=== PATIENT | female | born 2000 | race Asian ===

== ENCOUNTER → 2023-07-15 13:44 | Outpatient (BNVA) | payer OTHER, SELFPAY | PROVIDERS: PCP Family Medicine; Visit Provider Family Medicine | DX: I10 Essential (primary) hypertension (principal); Z13.6 Encounter for screening for cardiovascular disorders; E11.9 Type 2 diabetes mellitus without complications; G47.10 Hypersomnia, unspecified; E66.01 Morbid (severe) obesity due to excess calories; E28.2 Polycystic ovarian syndrome | CPT/HCPCS: 85025 ==

== ENCOUNTER → 2023-07-21 10:43 | Outpatient (BNVA) | payer OTHER, SELFPAY | PROVIDERS: PCP Family Medicine; Visit Provider Family Medicine | DX: E11.9 Type 2 diabetes mellitus without complications (principal); I10 Essential (primary) hypertension; E28.2 Polycystic ovarian syndrome; Z13.6 Encounter for screening for cardiovascular disorders; G47.10 Hypersomnia, unspecified; E66.01 Morbid (severe) obesity due to excess calories | CPT/HCPCS: 80053; 80061; 82043; 82670; 83001; 83036; 84144; 84146; 84403; 84443; 84702 ==

== ENCOUNTER 2023-08-29 08:07 | Emergency (ER) | payer OTHER, SELFPAY ==
[2023-08-29 08:38] VITALS: BP 121/67; PULSE 78; RESP 18; TEMP 37.6; O2SAT 98; BMI 55.5
[2023-08-29] MEDS: ondansetron 2 mg/ML SDV 2 mL 4 MG IVP (08:44)
[2023-08-29] MEDS: sodium chloride 0.9% 1,000 ML 999 ML IV ×2 (08:44→10:43)
[2023-08-29 08:46] LABS: Basophils % 0.5 %; Eosinophils # 0.1 10^3/uL (0.0-0.8); Eosinophils % 1.5 %; Hematocrit 40.5 % (36-47); Lymphocytes # 1.4 10^3/uL (0.8-4.8); Lymphocytes % 20.8 %; Mean Corpuscular HGB Conc 31.6 g/dL (30-55); Mean Corpuscular Hemoglobin 26.3 pg (27-33); Mean Corpuscular Volume 83.3 fl (85-98); Monocytes # 0.6 10^3/uL (0.2-0.9); Neutrophils # 4.46 10^3/uL (1.8-7.7); Nucleated Red Blood Cells % 0 %; Platelet Count 300 10^3/cmm (157-399); Red Blood Count 4.86 10^6/uL (3.85-5.65); White Blood Count 6.55 10^3/uL (3.29-11.43)
--- NOTE | 2023-08-29 09:03 | ED_ITS ---
HPI - Abdominal Pain 2 General: Chief Complaint: Abdominal Pain Stated Complaint: abd pain, N Time Seen by Provider: 08/29/23 08:12 Source: patient Mode of arrival: ambulatory History of Present Illness: 23-year-old obese female presents to the emergency room with complaints of abdominal pain with nausea x 10 days worsening last 2 days. No dysuria urgency or frequency no hematochezia melena hematemesis or coffee-ground emesis. Patient states it is worse with movement. Denies diarrhea or vomiting. She states there is no potential for her to be . MD elicited complaint: abdominal pain Onset (ago): week(s) (2) Pain Consistency: intermittent Location: Periumbilical Quality: cramping Radiation: none Exacerbating factors: nothing Relieving factors: nothing Associated Symptoms: Reports GI cramping; Denies anorexia, belching, bloating, change in bowel habits, change in stool character, chills, coffee ground emesis, constipation, diarrhea, dyspepsia, dysuria, excessive flatus, fever(s), heartburn, hematochezia, hematuria, hematemesis, fecal incontinence, loose stools, melena, nausea, poor appetite, syncope and vomiting Review of Systems 2 Const: Denies: fever(s) or chills Card: Denies: chest pain, palpitations or syncope Resp: Denies: dyspnea GI: Reports: GI cramping; Denies: abdominal pain, nausea, vomiting, hematemesis, coffee ground emesis, heartburn, diarrhea, constipation, bloating, belching, excessive flatus, fecal incontinence, change in bowel habits, change in stool character, hematochezia or melena : Denies: flank pain, dysuria, urinary frequency, urinary urgency or hematuria Musc: Denies: neck pain or back pain Skin/Breast: Denies: rash PFSH ED 2 PFSH: Medical History Benign essential HTN Family History Grandfather Hypertension CAD (coronary artery disease), Onset Age: 82 Father Hypertension Mother Diabetes Hypertension Social History Smoking and tobacco/nicotine status: never used tobacco/nicotine Alcohol intake: current Alcohol intake frequency: holidays/special occasions only Substance/Drug Use: never Household members: significant other Highest education level completed: Some College, No Degree Current occupational status: unemployed Physical Exam 2 Const: COMMON NORMALS: no acute distress GENERAL APPEARANCE: cooperative and comfortable ORIENTATION/CONSCIOUSNESS: Yes awake, Yes oriented to person, Yes oriented to place and Yes oriented to time HENMT: COMMON NORMALS: normocephalic, atraumatic and hearing grossly normal bilaterally HEAD & SCALP: normocephalic and atraumatic Resp: COMMON NORMALS: normal respiratory effort, No retractions, No use of accessory muscles and clear to auscultation bilaterally AUSCULTATION: clear to auscultation bilaterally Cardio: COMMON NORMALS: regular rate, regular rhythm and No murmurs present (Cardio) RATE: regular rate RHYTHM: regular rhythm GI: COMMON NORMALS: Soft to palpation and No hepatosplenomegaly present A USCULTATION: Yes normoactive bowel sounds PALPATION: Yes Soft to palpation, No Tenderness to palpation present (GI), No Guarding due to palpation present (GI) and Yes No hepatosplenomegaly present Extremity: COMMON NORMALS: normal to inspection, capillary refill normal, no clubbing, cyanosis or edema, no calf tenderness and no pedal edema Neuro: SENSORIUM/ORIENTATION: Yes oriented to person, Yes oriented to place and Yes oriented to time Skin: COMMON NORMALS: no rashes or lesions noted GENERAL SKIN EXAM: no rashes or lesions noted Course 2 Vital Signs: Vital signs: Vital Signs Temperature 99.6 F 08/29/23 08:38 Pulse Rate 78 08/29/23 08:38 Respiratory Rate 15 08/29/23 11:42 Blood Pressure 121/67 08/29/23 08:38 Pulse Oximetry 98 08/29/23 08:38 Oxygen Delivery Me thod Room Air 08/29/23 08:38 MDM - Abdominal Pain Medical Decision Making Imaging unremarkable. Labs show cystitis no leukocytosis CT did did not show any acute findings. Discharge home with Macrobid for cystitis. Increase fluid intake follow-up with primary care. Medical Records I reviewed the patient's medical records. Lab Data I reviewed the patient's lab results. 08/29/23 08:39 08/29/23 08:39 Labs/Radiology: Radiology Impressions Abdomen/Pelvis CT 08/29/23 09:07 IMPRESSION: Limited noncontrast study. Diverticulosis. Mild splenomegaly. Laboratory Results WBC 6.55 10^3/uL (3.29-11.43) 08/29/23 08:39 RBC 4.86 10^6/uL (3.85-5.65) 08/29/23 08:39 Hgb 12.80 g/dL (11.27-16.99) 08/29/23 08:39 Hct 40.5 % (36-47) 08/29/23 08:39 MCV 83.3 fl (85-98) L 08/29/23 08:39 MCH 26.3 pg (27-33) L 08/29/23 08:39 MCHC 31.6 g/dL (30-55) 08/29/23 08:39 RDW 14.0 % (12.1-15.1) 08/29/23 08:39 Plt Count 300 10^3/cmm (157-399) 08/29/23 08:39 MPV 10.0 fL (7.4-10.4) 08/29/23 08:39 Neut % (Auto) 68.0 % 08/29/23 08:39 Lymph % (Auto) 20.8 % 08/29/23 08:39 Jackson % (Auto) 9.0 % 08/29/23 08:39 Eos % (Auto) 1.5 % 08/29/23 08:39 Baso % (Auto) 0.5 % 08/29/23 08:39 Neut # (Auto) 4.46 10^3/uL (1.8-7.7) 08/29/23 08:39 Lymph # (Auto) 1.4 10^3/uL (0.8-4.8) 08/29/23 08:39 Jackson # (Auto) 0.6 10^3/uL (0.2-0.9) 08/29/23 08:39 Eos # (Auto) 0.1 10^3/uL (0.0-0.8) 08/29/23 08:39 Baso # (Auto) 0.0 10^3/uL (0.0-0.1) 08/29/23 08:39 Nucleated RBC % (auto) 0 % 08/29/23 08:39 Nucleated RBCs # 0.0 /100WBC 08/29/23 08:39 Sodium 137 mmol/L (136-145) 08/29/23 08:39 Potassium 4.0 mmol/L (3.5-5.1) 08/29/23 08:39 Chloride 104 mmol/L (98-107) 08/29/23 08:39 Carbon Dioxide 22 mmol/L (22-29) 08/29/23 08:39 Anion Gap 15.0 (5-19) 08/29/23 08:39 BUN 10 mg/dL (6-20) 08/29/23 08:39 Creatinine 0.8 mg/dL (0.5-0.9) 08/29/23 08:39 GFR Calculation 88.1 mL/min (90-130) L 08/29/23 08:39 Glucose 96 mg/dL (65-115) 08/29/23 08:39 Calculated Osmolality 283 mOsm/kg (285-295) L 08/29/23 08:39 Calcium 9.4 mg/dL (8.5-10.5) 08/29/23 08:39 Total Bilirubin 0.5 mg/dL (0.15-1.2) 08/29/23 08:39 AST 18 U/L (0-32) 08/29/23 08:39 ALT 12 U/L (0-33) 08/29/23 08:39 Alkaline Phosphatase 72 U/L (35-105) 08/29/23 08:39 Total Protein 7.9 g/dL (6.6-8.7) 08/29/23 08:39 Albumin 4.0 g/dL (3.5-5.2) 08/29/23 08:39 Globulin 3.9 g/dL (1.3-4.6) 08/29/23 08:39 Lipase 29 U/L (13-60) 08/29/23 08:39 HCG, Qual Negative (Negative) 08/29/23 08:39 Urine Color Yellow (Yellow) 08/29/23 11:41 Urine Appearance Clear (CLEAR) 08/29/23 11:41 Urine pH 5 (5-7) 08/29/23 11:41 Ur Specific [place] 1.010 (1.005-1.030) 08/29/23 11:41 Urine Protein Neg (Negative) 08/29/23 11:41 Urine Glucose (UA) Norm (Normal) 08/29/23 11:41 Urine Ketones Negative (Negative) 08/29/23 11:41 Urine Blood Neg (Negative) 08/29/23 11:41 Urine Nitrate Negative (Negative) 08/29/23 11:41 Urine Bilirubin Neg (Negative) 08/29/23 11:41 Prot Sulfosalicylic Acd Negative (Negative) 08/29/23 11:41 Urine Urobilinogen Norm mg/dL (Negative) 08/29/23 11:41 Ur Leukocyte Esterase Trace (Negative) H 08/29/23 11:41 Urine RBC 0-4 /hpf (0-2) H 08/29/23 11:41 Urine WBC 5-10 /hpf (0-5) H 08/29/23 11:41 Ur Squamous Epith Cells 0-4 /hpf (0-5) H 08/29/23 11:41 Amorphous Sediment Not Reportable 08/29/23 11:41 Urine Bacteria Trace /hpf (NONE) 08/29/23 11:41 All radiology interpretation(s) finalized by discharge Discharge Plan Discharge Patient Disposition: Home Clinical Impression: Cystitis Condition: Stable Prescriptions: New Macrobid 100 mg capsule 100 mg PO BID 7 Days Qty: 14 0RF Rx Instructions: must administer with a meal/food No Action olmesartan 20 mg tablet 20 mg PO DAILY Qty: 30 0RF metoprolol succinate 50 mg tablet extended release 24 hr 50 mg PO DAILY Qty: 30 0RF Olmezest 50mg 50 mg PO QPM Discharge Orders: Discharge ED (Routine); Ordered 08/29/23 Ordered By: Ruperto Burnham Referrals: Anaya Rosa DO [Primary Care Provider] - Discharge Diet: Usual diet Discharge Activity: Increase activity as tolerated Patient Instructions: Opioid Safety, Pain Management Activity Restrictions/Additional Instructions: Thank you for choosing [facility] for your healthcare needs today. Please realize this is an emergency room and that we are providing you with a medical screening exam and this may not be complete and all inclusive of all the testing and or work up that you may need to determine your ailment or severity of your illness. It is very important that you follow up as instructed or that you return to the Emergency Department should you have concerns or if your condition changes or worsens in any way. You were seen today with complaints of abdominal pain frequency urination. Labs showed you had a bladder infection CT did not show any significant abnormalities your blood sugar was in the normal range. Recommend starting oral antibiotics 1 pill twice a day for 1 week follow-up with your primary care doctor as needed Coding Level of Care Code ED Registered Health Nurse for Radha Do
[2023-08-29 09:07] LABS: Alanine Aminotransferase 12 U/L (0-33); Alkaline Phosphatase 72 U/L (35-105); Aspartate Amino Transferase 18 U/L (0-32); Blood Urea Nitrogen 10 mg/dL (6-20); Calcium 9.4 mg/dL (8.5-10.5); Carbon Dioxide 22 mmol/L (22-29); Chloride 104 mmol/L (98-107); Creatinine Clr Calc Pharmacy 173.5257; Globulin 3.9 g/dL (1.3-4.6); Glomerular Filtration Rate 88.1 mL/min (90-130); Glucose 96 mg/dL (65-115); Lipase 29 U/L (13-60); Osmolality Calculated 283 mOsm/kg (285-295); Sodium 137 mmol/L (136-145); Total Bilirubin 0.5 mg/dL (0.15-1.2); Total Protein 7.9 g/dL (6.6-8.7)
--- NOTE | 2023-08-29 09:07 | CTR_ITS ---
PROCEDURE INFORMATION: Exam: CT Abdomen And Pelvis Without Contrast Exam date and time: 08/29/2023 9:51 AM Age: 23 years old Clinical indication: Abdominal pain; Localized; Other: Central TECHNIQUE: Imaging protocol: Computed tomography of the abdomen and pelvis without contrast. Radiation optimization: All CT scans at this facility use at least one of these dose optimization techniques: automated exposure control; mA and/or kV adjustment per patient size (includes targeted exams where dose is matched to clinical indication); or iterative reconstruction. COMPARISON: No relevant prior studies available. RADIATION DOSE METRICS: Total DLP (mGy-cm): 1437.88 FINDINGS: Pleural spaces: There is a 3 mm calcified granuloma in the right costophrenic sulcus. Liver: Coarse calcification in the left hepatic lobe along the gallbladder fossa may relate to prior granulomatous disease. Gallbladder and bile ducts: The gallbladder is partially distended. Pancreas: Normal. No ductal dilation. Spleen: The spleen is mildly enlarged, measuring 11.3 x 5.7 x 13.2 cm. Adrenal glands: Normal. No mass. Kidneys and ureters: The kidneys are normal size and contour without hydronephrosis or nephrolithiasis. Stomach and bowel: There is no evidence her small bowel obstruction. Stool and diverticular noted throughout the colon. Appendix: No evidence of appendicitis. Intraperitoneal space: Unremarkable. No free air. No significant fluid collection. Vasculature: Unremarkable. No abdominal aortic aneurysm. Lymph nodes: Unremarkable. No enlarged lymph nodes. Urinary bladder: The urinary bladder is contracted. Reproductive: Unremarkable as visualized. Bones/joints: Unremarkable. No acute fracture. Soft tissues: Unremarkable. Other findings: Noncontrast technique limits evaluation of the abdomen. CT/CT abdomen pelvis con [id number] IMPRESSION: Limited noncontrast study. Diverticulosis. Mild splenomegaly.
[2023-08-29 09:26] LABS: HCG, Serum Qual Negative (Negative)
[2023-08-29 11:42] VITALS: RESP 15
[2023-08-29 12:24] LABS: Add Urine Microscopic? YES; Bilirubin Urine Neg (Negative); Blood Urine Neg (Negative); Glucose Urine UA Norm (Normal); Ketones Urine Negative (Negative); Leukocyte Esterase Urine Trace (Negative); Nitrate Urine Negative (Negative); Protein Urine Neg (Negative); Sulfosalicylic Acid Urine Negative (Negative); Urine Appearance Clear (CLEAR); Urine Color Yellow (Yellow); Urobilinogen Urine Norm (Negative); pH Urine 5 (5-7)
[2023-08-29 12:25] LABS: Add Urine Culture? No; Bacteria Urine TRACE /hpf; RBC Urine 0-4 /hpf (0-2); Squamous Epithelial Cell Urine 0-4 /hpf (0-5)
== END 2023-08-29 13:33 | disposition home or self-care (01) ==
PROVIDERS: Emergency Provider Family Medicine; PCP Family Medicine
DX: N30.90 Cystitis, unspecified without hematuria (principal); I10 Essential (primary) hypertension
CPT/HCPCS: 36415; 74176; 80053; 81001; 83690; 84703; 85025; 96361; 96374; 99285; J2405; J7030

== ENCOUNTER → 2023-09-08 15:07 | Outpatient (BNVA) | payer OTHER, SELFPAY | PROVIDERS: PCP Family Medicine; Visit Provider Family Medicine | DX: I10 Essential (primary) hypertension (principal); R30.0 Dysuria | CPT/HCPCS: 81000; 87086 ==

== ENCOUNTER 2023-09-16 15:00 | Outpatient (CLI) | payer OTHER, SELFPAY | END 2023-09-16 15:01 | disposition home or self-care (01) | LOC: SLEEP 09-17 09:58 | PROVIDERS: PCP Family Medicine; Visit Provider Family Medicine | DX: G47.10 Hypersomnia, unspecified (principal) | CPT/HCPCS: G0399 ==

== ENCOUNTER → 2023-09-20 19:15 | Outpatient (BNVA) | payer OTHER, SELFPAY | PROVIDERS: PCP Family Medicine; Visit Provider Emergency Medicine | DX: R39.9 Unspecified symptoms and signs involving the genitourinary system (principal) | CPT/HCPCS: 81000; 87086 ==

== ENCOUNTER → 2023-11-18 18:47 | Outpatient (BNVA) | payer OTHER, SELFPAY | PROVIDERS: PCP Family Medicine; Visit Provider Emergency Medicine | DX: R10.9 Unspecified abdominal pain (principal) | CPT/HCPCS: 81000 ==

== ENCOUNTER → 2024-05-21 12:23 | Outpatient (BNVA) | payer BC, SELFPAY | PROVIDERS: PCP Family Medicine; Visit Provider Family Medicine | DX: E66.01 Morbid (severe) obesity due to excess calories (principal) | CPT/HCPCS: 80053; 83036 ==

== ENCOUNTER → 2024-09-07 10:52 | Outpatient (BNVA) | payer BC, SELFPAY | PROVIDERS: PCP Family Medicine; Visit Provider Nurse Practitioner Women's Health | DX: Z01.419 Encounter for gynecological examination (general) (routine) without abnormal findings (principal); N92.6 Irregular menstruation, unspecified | CPT/HCPCS: 82670; 83001; 83036; 83520; 83525; 84402; 84403; 84443 ==

== ENCOUNTER → 2024-09-15 11:08 | Outpatient (BNVA) | payer BC, SELFPAY | PROVIDERS: PCP Family Medicine; Visit Provider Nurse Practitioner Women's Health | DX: N92.6 Irregular menstruation, unspecified (principal); R93.89 Abnormal findings on diagnostic imaging of other specified body structures | CPT/HCPCS: 76830 ==

== ENCOUNTER → 2025-03-21 15:30 | Outpatient (BNVA) | payer BC, SELFPAY | PROVIDERS: PCP Family Medicine; Visit Provider Emergency Medicine | DX: J02.9 Acute pharyngitis, unspecified (principal) | CPT/HCPCS: 87071; 87880 ==